=== PATIENT | male | born 1965 | race Two or more races ===

== ENCOUNTER 2017-05-14 10:01 | Day surgery (SDC) | payer OTHER ==
[~2017-05-14 10:01] MED LIST: BUPIVACAINE PF 0.5% 30 ML VIAL ONE; HYDROMORPHONE 2 MG/1 ML DISP.SYRIN ONE; MIDAZOLAM HCL 2 MG/2 ML VIAL ONE; POLYMYXIN B SULFATE 500,000 UNITS, BACITRACIN 50,000 UNITS, NORMAL SALINE 20 ML MC ONE; ROCURONIUM BROMIDE 50 MG/5 ML VIAL ONE; SUCCINYLCHOLINE CHLORIDE 200 MG/10 ML VIAL ONE
== END 2017-05-14 23:59 | disposition home or self-care (01) ==
LOC: DS 10:01 → LAB 12:00 → DS 13:10 → LAB 13:10 → DS 23:59 → EDSTATUS 05-25 15:57
PROVIDERS: ATTEND Orthopaedic Surgery
DX: M75.102 Unspecified rotator cuff tear or rupture of left shoulder, not specified as traumatic (principal); M25.812 Other specified joint disorders, left shoulder; M19.012 Primary osteoarthritis, left shoulder
CPT/HCPCS: 23120; 23130; 23412; J0330; J0690; J1170; J1885; J2250; J2405; J3010; J3490 ×6; J7120 ×2